=== PATIENT | female | born 1965 | race Hispanic/Latino ===

== ENCOUNTER 2017-02-05 21:41 | Emergency (ER) | payer SELFPAY ==
[2017-02-06 00:04] VITALS: BP 115/75
[2017-02-06 00:27] LABS: Basophils % (Auto) 0.5 % (0.0-1.8); Eosinophils % (Auto) 1.7 % (0.0-4.3); Hematocrit 41.4 % (30.3-42.9); Hemoglobin 13.8 gm/dl (10.1-14.3); Mean Corpuscular HGB Conc 33 % (30-34); Mean Corpuscular Hemoglobin 33 pg (28-32); Mean Corpuscular Volume 98 fl (79-97); Platelet Count 240 K/mm3 (140-440); Red Blood Count 4.23 M/mm3 (3.65-5.03); Red Cell Distribution Width 15.2 % (13.2-15.2); White Blood Count 7.8 K/mm3 (4.5-11.0)
[2017-02-06 00:50] LABS: Alanine Aminotransferase 8 units/L (7-56); Albumin 4.1 g/dL (3.9-5); Albumin/Globulin Ratio 1.4 %; Alkaline Phosphatase 85 units/L (35-129); Anion Gap 16 mmol/L; BUN/Creatinine Ratio 22.85; Blood Urea Nitrogen 16 mg/dL (7-17); Calcium 9.2 mg/dL (8.4-10.2); Carbon Dioxide 26 mmol/L (22-30); Chloride 98.5 mmol/L (98-107); Glucose 135 mg/dL (65-100); Lipase 22 units/L (13-60); Potassium 3.9 mmol/L (3.6-5.0); Sodium 137 mmol/L (137-145)
[2017-02-06 02:15] LABS: Bilirubin,Urine NEG (Negative); Blood,Urine NEG (Negative); Ketones,Urine TR mg/dL (Negative); Leukocyte Esterase,Urine SM (Negative); Mucus,Urine FEW /HPF; Nitrite,Urine NEG (Negative); Protein,Urine <15 mg/dL mg/dL (Negative); Urobilinogen,Urine < 2.0 mg/dL (<2.0)
[2017-02-06 03:20] LABS: Bilirubin,Total < 0.20 mg/dL (0.1-1.2)
--- NOTE | 2017-02-07 12:30 | ED Elopement Review ---
ED Pt Elopement review - Results review Lab results: Laboratory Tests 02/06/17 02/06/17 02/06/17 00:10 00:10 Unknown WBC 7.8 RBC 4.23 Hgb 13.8 Hct 41.4 MCV 98 H MCH 33 H MCHC 33 RDW 15.2 Plt Count 240 Lymph % (Auto) 40.6 H Wood % (Auto) 6.6 Eos % (Auto) 1.7 Baso % (Auto) 0.5 Lymph # 3.2 Wood # 0.5 Eos # 0.1 Baso # 0.0 Seg Neutrophils % 50.6 Seg Neutrophils # 3.9 Sodium 137 Potassium 3.9 Chloride 98.5 Carbon Dioxide 26 Anion Gap 16 BUN 16 Creatinine 0.7 Estimated GFR > 60 BUN/Creatinine Ratio 22.85 Glucose 135 H Calcium 9.2 Total Bilirubin < 0.20 AST 13 ALT 8 Alkaline Phosphatase 85 Total Protein 7.0 Albumin 4.1 Albumin/Globulin Ratio 1.4 Lipase 22 Urine Color Yellow Urine Turbidity Clear Urine pH 5.0 Ur Specific [place] 1.026 Urine Protein <15 mg/dl Urine Glucose (UA) Neg Urine Ketones Tr Urine Blood Neg Urine Nitrite Neg Urine Bilirubin Neg Urine Urobilinogen < 2.0 Ur Leukocyte Esterase Sm Urine WBC (Auto) 22.0 H Urine RBC (Auto) 6.0 U Epithel Cells (Auto) 1.0 Urine Mucus Few
== END 2017-02-06 00:10 | disposition left against medical advice (07) ==
LOC: ED 21:41
DX: R10.9 Unspecified abdominal pain (principal); R11.2 Nausea with vomiting, unspecified; Z53.21 Procedure and treatment not carried out due to patient leaving prior to being seen by health care provider
CPT/HCPCS: 36415; 80053; 81001; 83690; 85025